=== PATIENT | female | born 1955 | race Caucasian/White ===

== ENCOUNTER → 2018-10-16 | Outpatient (CLI) | payer OTHER ==
[~2018-10-16] MED LIST: AEC81 PO; CALC-190 PO; CHOL100018 PO; CYAN50008 PO; LISI-617 PO; MAGN400T40 PO; METO25TA3 PO; MULTIVITAMIN PO
== END | disposition home or self-care (01) ==
LOC: RAH 10:34
PROVIDERS: ATTEND Family Medicine
DX: Z12.31 Encounter for screening mammogram for malignant neoplasm of breast (principal)
CPT/HCPCS: 77067

== ENCOUNTER 2019-08-26 06:25 | Inpatient (IN) | payer MEDICARE ==
[2019-08-25 14:45] VITALS: BP 102/62
[2019-08-25 15:11] LABS: BASOPHILS % (AUTO) 0.7 % (0.0-5.0); EOSINOPHILS % (AUTO) 1.7 % (0.0-8.0); HEMATOCRIT 40.7 % (36-48); LYMPHOCYTES % (AUTO) 28.1 % (21.0-51.0); MEAN CORPUSCULAR HEMOGLOBIN 31.1 pg (27.0-33.0); MEAN CORPUSCULAR VOLUME 91.7 fL (79-99); MONOCYTES % (AUTO) 7.6 % (3.0-13.0); NEUTROPHILS % (AUTO) 61.9 % (40.0-77.0); PLATELET COUNT (AUTO) 169 K/uL (130-400); RED BLOOD CELL COUNT(AUTO) 4.44 MIL/uL (4.00-5.50); RED CELL DISTRIBUTION WIDTH 13.5 % (11.0-15.5); WHITE BLOOD COUNT (AUTO) 6.4 K/uL (4.8-10.8)
[2019-08-25 15:19] LABS: CREATININE 0.7 mg/dL (0.5-1.5); POTASSIUM 4.4 mmol/L (3.5-5.1)
--- NOTE | 2019-08-25 18:14 | NUR ---
reported ekg to Doctor Rivera, no new orders.
[2019-08-26] VITALS (29 sets, daily range): BP systolic 65–125; BP diastolic 35–75
[~2019-08-26] VITALS: Ht 160 cm; Wt 88.3 kg
[~2019-08-26 06:25] MED LIST changes: +METO-408 PO; -METO25TA3 PO
[2019-08-26] MEDS ORDERED: ROCURONIUM 10MG/1ML SYR 10 MG/ML ML ONE (07:41)
[2019-08-26] MEDS ORDERED: LIDOCAINE PF 2% 5ML ABBOJECT ONE (07:41)
[2019-08-26] MEDS ORDERED: FENTANYL CITRATE PF 50 MCG/1 ML 2ML VIAL ONE (07:41)
[2019-08-26] MEDS ORDERED: PROPOFOL 10 MG/ML 20ML VIAL IV ONE (07:41)
[2019-08-26] MEDS ORDERED: SUCCINYLCHOLINE 200MG/10ML SYR ONE (07:41)
[2019-08-26] MEDS: CALDOLOR 800MG+NS 250ML 250 ML IV PRN ×2 (07:53)
[2019-08-26] MEDS: CEFAZOLIN SODIUM 1 GM VIAL IVP ONE ×2 (07:59→08:45)
[2019-08-26] MEDS ORDERED: LACTATED RINGERS 1000ML 1,000 ML IV SCH (08:00)
[2019-08-26] MEDS ORDERED: DURAMORPH PF1 MG/ML 10ML AMP IV ONE (08:32)
[2019-08-26] MEDS ORDERED: EPHEDRINE SULFATE 50 MG/ML AMPULE ONE ×2 (09:09→15:23)
[2019-08-26] MEDS ORDERED: GLYCOPYRROLATE 1 MG/5 ML SYRINGE ONE (10:19)
[2019-08-26] MEDS ORDERED: NEOSTIGMINE 5MG/5ML SYR IV ONE (10:19)
[2019-08-26] MEDS ORDERED: BISACODYL 10 MG SUPP.RECT RC PRN (11:00)
[2019-08-26] MEDS ORDERED: PROMETHAZINE HCL 25 MG/ML 1ML AMPULE IM PRN ×2 (11:00)
[2019-08-26] MEDS ORDERED: ONDANSETRON HCL 4 MG/2 ML VIAL IVP PRN (11:00)
[2019-08-26] MEDS ORDERED: MEPERIDINE-PF 75 MG/ML SYG IM PRN (11:00)
[2019-08-26] MEDS: DEXTROSE 5 %-0.45 % NACL 1,000 ML IV PRN ×2 (11:57→15:57)
--- NOTE | 2019-08-26 13:20 | NUR ---
PATIENT AWAKE,ALERT AND ORIENTED. CHANEY CATHETER PATENT AND DRAINING TO SIDE OF THE BED. NO PAIN REPORTED AT THIS TIME. IS AT BEDSIDE. ADVISED TO CALL WITH ANY NEEDS OR CONCERNS. CALL LIGHT LEFT IN REACH.
[2019-08-26] MEDS: CEFAZOLIN SODIUM 1 GM VIAL IVP SCH ×3 (14:22→23:47)
--- NOTE | 2019-08-26 15:00 | NUR ---
LOW BLOOD PRESSURE PT'S BLOOD PRESSURES TRENDING LOW. PULSE STABLE AT HIGH 50'S. PT STATES IS FEELING LIGHT-HEADED. LUCERO STARK CRNA INFORMED AND NEW ORDERS RECEIVED.
--- NOTE | 2019-08-26 15:30 | NUR ---
PT MEDICATED WITH EPHEDRINE 20MG IV ORDERED AND BOLUSED WITH 500ML OF LR IV. WILL CONTINUE TO MONITOR PT.
--- NOTE | 2019-08-26 15:45 | NUR ---
BLOOD PRESSURE IMPROVED PT'S V/S RECHECKED WITH B/P AT 114/56, PULSE: 63, O2 SATS: 98% AT 2 LITERS. DENIES FURTHER LIGHT-HEADEDNESS. WILL MONITOR V/S THROUGHOUT SHIFT.
[2019-08-26 16:10] LABS: HEMATOCRIT 32.9 % (36-48)
[2019-08-26] MEDS: CALDOLOR 800MG+NS 250ML 250 ML IV SCH (18:59)
[2019-08-26] MEDS ORDERED: Metoprolol Succinate 25 MG PO SCH (21:00)
--- NOTE | 2019-08-26 21:12 | NUR ---
Blood Pressure recheck 82/44: Patient denies headache lightheadedness. Patient positioned in high Fowlers. Pelayo Catheter intact and patent. IV of D5 1/2 NS infusing well at 125 ml/hour.
[2019-08-26] MEDS: DOCUSATE SODIUM 100 MG CAP PO PRN (23:45)
[2019-08-26] MEDS: SIMETHICONE 80 MG TAB.CHEW PO PRN (23:45)
[2019-08-27] VITALS (10 sets, daily range): BP systolic 78–133; BP diastolic 42–75
--- NOTE | 2019-08-27 01:00 | NUR ---
COMMUNICATION: Dr. Perez called by phone informed of patient low Blood Pressure 81/46 and 78/43 when recheck, received orders to stop Lisinopril5 mg p.o. and metoprolol succinate 25 mg p.o. Give Ephedrine 5 mg IV push one time only. Order noted
[2019-08-27] MEDS ORDERED: EPHEDRINE SULFATE 50 MG/ML AMPULE ONE (01:20)
[2019-08-27] MEDS ORDERED: EPHEDRINE SULFATE 50 MG/ML AMPULE IVP ONE (01:30)
--- NOTE | 2019-08-27 02:00 | NUR ---
Blood Pressure recheck: BP 80/ 42 Pulse 61 Oxygen saturation 97.
[2019-08-27] MEDS: CALDOLOR 800MG+NS 250ML 250 ML IV SCH (03:02)
--- NOTE | 2019-08-27 05:58 | NUR ---
Oxygen inhalation off.
--- NOTE | 2019-08-27 06:00 | NUR ---
Pelayo Catheter patent flowing clear yellow urine. To start Bladder Training.
[2019-08-27] MEDS: CEFAZOLIN SODIUM 1 GM VIAL IVP SCH (06:20)
[2019-08-27 06:59] LABS: MEAN CORPUSCULAR HGB CONC 34.1 g/dL (32.0-36.0); MEAN CORPUSCULAR VOLUME 90.9 fL (79-99); PLATELET COUNT (AUTO) 130 K/uL (130-400); RED CELL DISTRIBUTION WIDTH 13.5 % (11.0-15.5); WHITE BLOOD COUNT (AUTO) 5.8 K/uL (4.8-10.8)
--- NOTE | 2019-08-27 08:00 | NUR ---
INCISION DRY AND INTACT. BRUISING NOTED TO INCISION. REPORTED DISCOMFORT OF 2/10. DISCONNECTED CATHETER TO BEGIN BLADDER TRAINING AT THIS TIME. PATIENT IN BED TO CONTINUE WITH BREAKFAST. ADVISED PATIENT TO CALL WHEN DONE EATING SO SHE CAN GET UP TO CHAIR.
--- NOTE | 2019-08-27 08:40 | NUR ---
ASSISTED PATIENT OOB TO RESTROOM. 200ML EMPTIED FROM CATHETER. PATIENT AMBULATED TO CHAIR AT BEDSIDE WITHOUT ANY DIFFICULTY.
--- NOTE | 2019-08-27 08:50 | NUR ---
LINEN CHANGED AT THIS TIME. PATIENT USING I.S CORRECTLY AVERAGING 1000ML. CALL LIGHT LEFT IN REACH. ADVISED PATIENT TO CALL WITH ANY NEEDS OR CONCERNS.
[2019-08-27] MEDS ORDERED: LISINOPRIL 5 MG TABLET PO SCH (09:00)
[2019-08-27] MEDS: DEXTROSE 5 %-0.45 % NACL 1,000 ML IV PRN (10:21)
[2019-08-27] MEDS: SIMETHICONE 80 MG TAB.CHEW PO PRN ×3 (10:25→21:34)
[2019-08-27] MEDS: DOCUSATE SODIUM 100 MG CAP PO PRN ×2 (10:25→21:34)
[2019-08-27] MEDS: IBUPROFEN 800 MG TAB PO SCH ×2 (10:54→18:36)
[2019-08-27] MEDS ORDERED: TRAMADOL HCL 50 MG TABLET PO PRN (11:00)
--- NOTE | 2019-08-27 11:15 | NUR ---
ASSISTED PATIENT TO RESTROOM. PT ABLE TO UNCLAMP AND EMPTY CATHETER. 200ML OF CLEAR YELLOW URINE EMPTIED. CATHETER RECLAMPED
--- NOTE | 2019-08-27 13:50 | NUR ---
ASSISTED PATIENT TO RESTROOM 150ML EMPTIED FROM CATHETER.
--- NOTE | 2019-08-27 14:06 | NUR ---
DC PLAN VISITED WITH PATIENT. PATIENT LIVES WITH SPOUSE. INDEPENDENT ABLE TO PERFORM ADL'S. PATIENT HAS NO SERVICES OR DME'S. FEELS SAFE TO RETURN HOME. Addendum: 08/27/19 at 1408 by SHELLY BENTLEY RN CM Amended: Links added.
[2019-08-27] MEDS: ACETAMINOPHEN 325 MG TAB PO PRN ×2 (16:04→21:37)
--- NOTE | 2019-08-27 16:10 | NUR ---
PATIENT EMPTIED CATHETER ON HER OWN. 500 ML OF URINE IN NUN'S HAT.
--- NOTE | 2019-08-27 19:35 | NUR ---
Activity: Patient ambulating in the Hallway tolerated it well. Pelayo Catheter intact. Patient on bladder Training.
--- NOTE | 2019-08-27 20:05 | NUR ---
Patient voided: Patient voided 80 ml clear yellow. Pelayo catheter hooked back with Pelayo Bag at bedside tip cleaned with alcohol prior to connecting the tubing.
[2019-08-28] MEDS: IBUPROFEN 800 MG TAB PO SCH ×2 (03:16→11:11)
[2019-08-28 03:24] VITALS: BP 139/72
[2019-08-28 06:47] LABS: HEMATOCRIT 31.2 % (36-48); MEAN CORPUSCULAR HEMOGLOBIN 31.2 pg (27.0-33.0); MEAN CORPUSCULAR HGB CONC 33.9 g/dL (32.0-36.0); MEAN CORPUSCULAR VOLUME 92.2 fL (79-99); PLATELET COUNT (AUTO) 126 K/uL (130-400); RED BLOOD CELL COUNT(AUTO) 3.38 MIL/uL (4.00-5.50); RED CELL DISTRIBUTION WIDTH 13.2 % (11.0-15.5); WHITE BLOOD COUNT (AUTO) 6.2 K/uL (4.8-10.8)
[2019-08-28 07:37] VITALS: BP 153/87
[2019-08-28] MEDS: DOCUSATE SODIUM 100 MG CAP PO PRN (08:47)
[2019-08-28] MEDS: SIMETHICONE 80 MG TAB.CHEW PO PRN (08:47)
[2019-08-28] MEDS: ACETAMINOPHEN 325 MG TAB PO PRN (08:48)
--- NOTE | 2019-08-28 09:36 | NUR ---
MD DR. LIZ CALLED TO CHECK STATUS OF PATIENT, NO NEW ORDERS RECEIVED.
--- NOTE | 2019-08-28 09:55 | NUR ---
PATIENT AMBULATING IN HALLWAY ACCOMPANIED BY . NO COMPLAINTS OF DIZZINESS REPORTED.
--- NOTE | 2019-08-28 10:00 | NUR ---
CHANEY CATHETER REMOVED WITH TIP INTACT. PATIENT ASSISTED TO RESTROOM AND WAS ABLE TO VOID.
[2019-08-28 11:33] VITALS: BP 144/56
--- NOTE | 2019-08-28 15:00 | NUR ---
MD DR. LIZ ROUNDING ON PATIENT. POC DISCUSSED. PATIENT OKAY FOR DISCHARGE.
--- NOTE | 2019-08-28 15:30 | NUR ---
INSTRUCTIONS DISCHARGE INSTRUCTIONS READ AND EXPLAINED TO PATIENT. REVIEWED INCISION CARE, IMPORTANCE OF AMBULATING AND USING I.S. PATIENT VOICED UNDERSTANDING. PRESCRIPTION FOR MOTRIN 800MG AND SURFAK HANDED TO PATIENT.
--- NOTE | 2019-08-28 15:45 | NUR ---
DISCHARGE PATIENT LEFT UNIT VIA WHEELCHAIR WITH BELONGINGS IN HAND. PERSONAL VEHICLE USED FOR TRANSPORTATION. NO COMPLAINTS OR CONCERNS ADDRESSED FROM PATIENT ON DISCHARGE.
== END 2019-08-28 15:45 | disposition home or self-care (01) | DRG 742 ==
LOC: DAHIP 06:25 → WSH 11:50
PROC: 0UT00ZZ Resection of Right Ovary, Open Approach (ICD-10-PCS; 2019-08-26)
PROC: 0USG0ZZ Reposition Vagina, Open Approach (ICD-10-PCS; principal; 2019-08-26 09:06)
PROC: 0UT50ZZ Resection of Right Fallopian Tube, Open Approach (ICD-10-PCS; 2019-08-26 09:06)
DX: N99.3 Prolapse of vaginal vault after hysterectomy (principal); D62 Acute posthemorrhagic anemia; K57.30 Diverticulosis of large intestine without perforation or abscess without bleeding
CPT/HCPCS: 36415; 80048; 85014; 85018; 85025; 85027; 86850; 86900; 86901; 88305; 93005; 96365; A4344; C1781; G0378; J0330; J0690; J1741; J2001; J2274; J2704; J2710; J3010; J3490; J7042; J7120

== ENCOUNTER → 2020-06-09 | Outpatient (CLI) | payer MEDICARE ==
[~2020-06-09] MED LIST changes: +APIX5TAB PO; +FURO40TA5 PO; +METO25TA6 PO; +METO75TA PO
== END | disposition home or self-care (01) ==
LOC: SHCH 10:36
PROVIDERS: ATTEND Internal Medicine Cardiovascular Disease
DX: R00.2 Palpitations (principal); R07.9 Chest pain, unspecified
CPT/HCPCS: 93306

== ENCOUNTER → 2020-06-11 | Outpatient (CLI) | payer MEDICARE ==
[~2020-06-11] VITALS: Ht 160 cm; Wt 86.2 kg
[~2020-06-11] MED LIST changes: +REGADENOSON 0.4 MG/5 ML PF SYG IVP SCH
== END | disposition home or self-care (01) ==
LOC: SHCH 07:54
PROVIDERS: ATTEND Internal Medicine Cardiovascular Disease
DX: R07.9 Chest pain, unspecified (principal); R00.2 Palpitations
CPT/HCPCS: 78452; 93017; 96374; A9500 ×2; J2785

== ENCOUNTER 2020-06-21 06:12 | Day surgery (SDC) | payer MEDICARE ==
[2020-06-21] VITALS (11 sets, daily range): BP systolic 75–142; BP diastolic 32–91
[~2020-06-21] VITALS: Ht 160 cm; Wt 86.2 kg
[~2020-06-21 06:12] MED LIST changes: -APIX5TAB PO; -FURO40TA5 PO; -METO25TA6 PO; -METO75TA PO; -REGADENOSON 0.4 MG/5 ML PF SYG IVP SCH
--- NOTE | 2020-06-21 06:40 | NUR ---
Called Doctor Esther and advised him of patient not taking her eliquis since she got the perscription, okay to proceed with procedure.
[2020-06-21 07:12] LABS: BASOPHILS % (AUTO) 0.7 % (0.0-5.0); EOSINOPHILS % (AUTO) 1.6 % (0.0-8.0); HEMATOCRIT 39.9 % (36-48); LYMPHOCYTES % (AUTO) 23.9 % (21.0-51.0); MEAN CORPUSCULAR HEMOGLOBIN 26.3 pg (27.0-33.0); MEAN CORPUSCULAR HGB CONC 29.6 g/dL (32.0-36.0); MEAN CORPUSCULAR VOLUME 89.1 fL (79-99); MONOCYTES % (AUTO) 9.8 % (3.0-13.0); NEUTROPHILS % (AUTO) 63.9 % (40.0-77.0); PLATELET COUNT (AUTO) 190 K/uL (130-400); RED BLOOD CELL COUNT(AUTO) 4.48 MIL/uL (4.00-5.50); RED CELL DISTRIBUTION WIDTH 16.1 % (11.0-15.5); WHITE BLOOD COUNT (AUTO) 7.4 K/uL (4.8-10.8)
[2020-06-21 07:27] LABS: INR 1.11 (0.85-1.15); PARTIAL THROMBOPLASTIN TIME 26.2 SEC (26.3-35.5); PROTHROMBIN TIME 11.9 SEC (9.6-11.6)
[2020-06-21 07:39] LABS: POTASSIUM 3.9 mmol/L (3.5-5.1)
[2020-06-21] MEDS ORDERED: MEPERIDINE-PF 50 MG/ML SYG ONE (07:39)
[2020-06-21] MEDS ORDERED: FENTANYL CITRATE PF 50 MCG/1 ML 2ML VIAL ONE (07:39)
[2020-06-21] MEDS ORDERED: MIDAZOLAM HCL 1 MG/ML 2ML VIAL ONE ×4 (07:39→10:19)
[2020-06-21] MEDS ORDERED: LIDOCAINE HCL 2% 20ML ONE ×3 (07:40→11:04)
[2020-06-21] MEDS ORDERED: HEPARIN SODIUM 1000UNIT/ML 10ML VIAL ONE (07:40)
[2020-06-21] MEDS ORDERED: METO75TA PO (08:08)
[2020-06-21] MEDS ORDERED: FURO40TA5 PO (08:08)
[2020-06-21] MEDS ORDERED: DOPAMINE HCL 400 MG/D5%-WATER 250 ML IV ONE (08:16)
[2020-06-21] MEDS ORDERED: APIX5TAB PO (11:38)
[2020-06-21] MEDS ORDERED: METO25TA6 PO (11:38)
--- NOTE | 2020-06-21 15:30 | NUR ---
DR. QUACH GIVEN EKG RESULTS AND INFORMED UNABLE TO FAX COPY TO OFFICE DO TO FAX AT OFFICE NOT WORKING.
== END 2020-06-21 16:08 | disposition home or self-care (01) ==
LOC: DAH 06:12
PROVIDERS: ATTEND Internal Medicine Cardiovascular Disease
DX: I48.3 Typical atrial flutter (principal); I42.0 Dilated cardiomyopathy; I08.1 Rheumatic disorders of both mitral and tricuspid valves; I70.0 Atherosclerosis of aorta; I11.0 Hypertensive heart disease with heart failure; I44.7 Left bundle-branch block, unspecified; I44.2 Atrioventricular block, complete; I50.22 Chronic systolic (congestive) heart failure; Z79.82 Long term (current) use of aspirin; Z79.01 Long term (current) use of anticoagulants; Z79.899 Other long term (current) drug therapy; Z79.02 Long term (current) use of antithrombotics/antiplatelets; Z88.8 Allergy status to other drugs, medicaments and biological substances; Z88.2 Allergy status to sulfonamides; Z98.84 Bariatric surgery status; Z90.710 Acquired absence of both cervix and uterus; Z98.890 Other specified postprocedural states
CPT/HCPCS: 36415; 80048; 85025; 85610; 85730; 93005; 93313; 93613; 93621; 93653; A4215 ×2; A4216; A4221; A4222; A4223 ×3; A4606; A4649 ×2; A4663; C1730 ×2; C1732; C1894 ×3; J1265; J1644 ×2; J2175; J2250 ×4; J3010; J3490 ×3; 99156; 99157

== ENCOUNTER 2020-08-18 07:35 | Observation (INO) | payer MEDICARE ==
[2020-08-16 12:08] LABS: BASOPHILS % (AUTO) 0.7 % (0.0-5.0); HEMATOCRIT 37.7 % (36-48); LYMPHOCYTES % (AUTO) 30.7 % (21.0-51.0); MEAN CORPUSCULAR HGB CONC 31.6 g/dL (32.0-36.0); MEAN CORPUSCULAR VOLUME 88.7 fL (79-99); MONOCYTES % (AUTO) 9.3 % (3.0-13.0); NEUTROPHILS % (AUTO) 57.1 % (40.0-77.0); PLATELET COUNT (AUTO) 175 K/uL (130-400); RED BLOOD CELL COUNT(AUTO) 4.25 MIL/uL (4.00-5.50); RED CELL DISTRIBUTION WIDTH 16.8 % (11.0-15.5); WHITE BLOOD COUNT (AUTO) 5.4 K/uL (4.8-10.8)
[2020-08-16 12:16] LABS: CREATININE 0.6 mg/dL (0.5-1.5); POTASSIUM 4.5 mmol/L (3.5-5.1)
[2020-08-16 12:21] LABS: INR 0.98 (0.85-1.15); PARTIAL THROMBOPLASTIN TIME 26.4 SEC (26.3-35.5); PROTHROMBIN TIME 10.6 SEC (9.6-11.6)
[2020-08-17 12:15] VITALS: BP 115/62
[2020-08-18] VITALS (11 sets, daily range): BP systolic 90–137; BP diastolic 50–84
[~2020-08-18] VITALS: Ht 161.3 cm; Wt 84.1 kg
[~2020-08-18 07:35] MED LIST changes: +CALC-1158 PO; -CALC-190 PO; -CHOL100018 PO; +CHOL2000 PO; +CYAN100T45 PO; -CYAN50008 PO; +FOLI-114 PO; +FURO40TA5 PO; +MAGN100C4 PO; -MAGN400T40 PO; -METO-408 PO; +METO25TA6 PO; -MULTIVITAMIN PO; +VANCOMYCIN 1GM+NS 250ML 250 ML IV SCH
[2020-08-18] MEDS ORDERED: SODIUM CHLORIDE 0.9% 1000ML 1,000 ML IV ONE (07:47)
--- NOTE | 2020-08-18 08:00 | NUR ---
PREOP PT ARRIVED IN NO DISTRESS. PTS SPOUSE AT SIDE. PT ORIENTED TO ROOM AND CALL LIGHT. PT CONNECTED TO FEEDER DRIVER, WILL CONTINUE TO MONITOR PT
[2020-08-18] MEDS ORDERED: METO-408 PO (08:34)
[2020-08-18] MEDS ORDERED: CEFAZOLIN SODIUM 1 GM VIAL ONE (10:08)
[2020-08-18] MEDS ORDERED: BUPIVACAINE/PF 0.25% 30ML VIAL IJ ONE (10:08)
[2020-08-18] MEDS ORDERED: LIDOCAINE HCL 1% MDV 50ML VIAL ONE (10:09)
[2020-08-18] MEDS ORDERED: MIDAZOLAM HCL 1 MG/ML 2ML VIAL ONE ×2 (10:09→12:04)
[2020-08-18] MEDS ORDERED: MEPERIDINE-PF 25 MG/ML SYG ONE ×3 (10:09→12:07)
[2020-08-18] MEDS ORDERED: IODIXANOL 320 MG/ML 100 ML VIAL ONE (10:11)
--- NOTE | 2020-08-18 10:20 | NUR ---
[facility] PT TAKEN TO [facility] VIA BED BY ABHISHEK ACKERMAN FROM [facility]. PT IN NO DISTRESS.
[2020-08-18] MEDS ORDERED: VANCOMYCIN 1GM+NS 250ML 250 ML IV ONE (10:37)
--- NOTE | 2020-08-18 13:00 | NUR ---
REP ALVINO RITTER CAME IN TO EXPLAIN HOW TO USE MONITORING DEVICE TO . HE VOICED UNDERSTANDING
--- NOTE | 2020-08-18 13:05 | NUR ---
MD DR ALFARO SPOKE TO AND GAVE HIM RESULTS. VOICED UNDERSTANDING
--- NOTE | 2020-08-18 20:21 | NUR ---
PT COMPLAINTS OF PAIN TO RIGHT SHOULDER WITH PS: 4-03/21 Informed on-call NPn with an order to give Motrin 400 mg po x 1 only.
[2020-08-18] MEDS: METOPROLOL SUCCINATE 50 MG TAB.SR.24H PO SCH (20:43)
[2020-08-18] MEDS: IBUPROFEN 800 MG TAB ONE ×2 (20:43→20:48)
[2020-08-18] MEDS ORDERED: MAGNESIUM SULFATE PO SCH ×2 (21:00)
[2020-08-18] MEDS ORDERED: NON-FORMULARY MEDICATION 1 EACH (Cholecalciferol (Vitamin D3) (Vitamin D3) 50 MCG) PO SCH (21:00)
[2020-08-18] MEDS ORDERED: CYANOCOBALAMIN (VITAMIN B-12) 100 MCG TABLET PO SCH (21:00)
[2020-08-18] MEDS ORDERED: ASPIRIN 81 MG EC TAB PO SCH (21:00)
[2020-08-18] MEDS ORDERED: NON-FORMULARY MEDICATION 1 EACH (Metoprolol Succinate 25 MG) PO SCH (21:00)
[2020-08-18] MEDS ORDERED: HOME MEDICATION 1 EACH PO SCH (21:00)
[2020-08-18] MEDS: PHARMACY COMMUNICATION MISC SCH (21:15)
[2020-08-18] MEDS ORDERED: IBUPROFEN 400 MG TABLET PO ONE (21:45)
[2020-08-19] MEDS: PHARMACY COMMUNICATION MISC SCH (04:15)
[2020-08-19 04:46] VITALS: BP 95/48
--- NOTE | 2020-08-19 07:50 | NUR ---
ASSESSMENT ENCOUNTERED PT UP IN CHAIR, A&OX3, CALM COOPERATIVE AND DOES NOT APPEAR TO BE IN ANY DISTRESS NOR ANY NEURO DEFICITS PRESENT. LEFT SHOULDER DRESSING DRY, INTACT AND SECURED WITH ARM SLING. PT IS AMBULATORY, GAIT STEADY AND STRONG WITH STAND BY ASSIST. PT DENIES SOB, DIZZINESS BUT DOES C/O INCISIONAL PAIN. CALL LIGHT WITHIN REACH.
[2020-08-19 08:00] VITALS: BP 136/115
[2020-08-19] MEDS: METOPROLOL SUCCINATE 50 MG TAB.SR.24H PO SCH (08:21)
[2020-08-19] MEDS ORDERED: LUT PO SCH (09:00)
[2020-08-19] MEDS ORDERED: FOLIC ACID PO SCH (09:00)
[2020-08-19] MEDS ORDERED: MULTIVITS MIN PO SCH (09:00)
[2020-08-19] MEDS ORDERED: MULTIVITAMIN TABLET PO SCH (09:00)
[2020-08-19] MEDS ORDERED: LISINOPRIL 5 MG TABLET PO SCH (09:00)
[2020-08-19] MEDS ORDERED: FUROSEMIDE 40 MG TABLET PO SCH (09:00)
[2020-08-19] MEDS ORDERED: [UNRECOGNIZED DRUG - OTHER] PO SCH (09:00)
--- NOTE | 2020-08-19 12:00 | NUR ---
DISCHARGE INSTRUCTIONS GIVEN, PIV REMOVED AND INTACT, DISCHARGED HOME TO [facility].
[2020-08-19 12:40] VITALS: BP 95/60
[2020-08-19 12:55] VITALS: BP 98/62
== END 2020-08-19 13:30 | disposition home or self-care (01) ==
LOC: DAH 07:35 → DAHIP 07:36 → DAH 07:36 → 4AH 14:07
PROVIDERS: ADMIT Internal Medicine; ATTEND Internal Medicine
DX: I44.7 Left bundle-branch block, unspecified (principal); I11.0 Hypertensive heart disease with heart failure; I50.22 Chronic systolic (congestive) heart failure; I42.0 Dilated cardiomyopathy; I08.1 Rheumatic disorders of both mitral and tricuspid valves; I48.3 Typical atrial flutter; Z90.710 Acquired absence of both cervix and uterus; Z98.891 History of uterine scar from previous surgery; Z87.891 Personal history of nicotine dependence; Z79.82 Long term (current) use of aspirin; Z79.01 Long term (current) use of anticoagulants; Z79.899 Other long term (current) drug therapy; Z88.5 Allergy status to narcotic agent; Z88.1 Allergy status to other antibiotic agents; Z98.84 Bariatric surgery status
CPT/HCPCS: 33225; 33249; 36415; 71045; 80048; 85025; 85610; 85730; 96360; 96361; A4215; A4216; A4221; A4222; A4223 ×3; A4606; A4663; C1769; C1882; C1895 ×2; C1900; G0378 ×18; J2175 ×2; J2250 ×2; J3370 ×2; J3490 ×2; J7030 ×2; Q9967; 99156; 99157; J0690

== ENCOUNTER → 2021-01-26 | Outpatient (CLI) | payer MEDICARE ==
[~2021-01-26] MED LIST changes: -LISI-617 PO; +LISI-809 PO; +METO-408 PO; -METO25TA6 PO; -VANCOMYCIN 1GM+NS 250ML 250 ML IV SCH
== END | disposition home or self-care (01) ==
LOC: RAH 09:36
PROVIDERS: ATTEND Family Medicine
DX: Z12.31 Encounter for screening mammogram for malignant neoplasm of breast (principal)
CPT/HCPCS: 77067